=== PATIENT | female | born 2005 | race Caucasian/White ===

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

== ENCOUNTER 2024-03-08 13:05 | Emergency (ER) | payer BC, SELFPAY ==
[2024-03-08 13:25] VITALS: BP 133/81; PULSE 74; RESP 20; TEMP 36.9; O2SAT 96; BMI 35.5
--- NOTE | 2024-03-08 13:31 | ED_ITS ---
Discharge Plan Disposition Patient Disposition: Home, Self-Care Condition: Good Prescriptions Prescriptions: New azithromycin [Zithromax Z-Laron] 250 mg tablet See Rx Instructions .ROUTE .COMPLEX 5 Days Qty: 6 0RF Rx Instructions: For 250 mg dose pack: take 500 mg today (day 1), then 250 mg for 4 days (days 2-5) No Action propranolol 10 mg tablet 10 mg PO BID Qty: 60 2RF Qulipta 60 mg tablet 60 mg PO DAILY Qty: 90 3RF Referrals Follow up/Referrals: Christina Molina APRN [Primary Care Provider] - See instructions Activity Restrictions/Add. Instructions Additional Instructions/Restrictions: Monitor Temp, Over the counter Motrin or Tylenol as directed/as needed Tylenol every 4 hours and Motrin every 6 hours (as long as your family doctor has told you that you can take it) for fever or pain. and straight to ER if unable to lower temp less than 101.0 after medication given *Warm salt water gargles may help to soothe the throat *Throat Lozenges? *Warm fluids like tea with honey may help to soothe the throat? *Sleep elevated *Humidifier/Vaporizer Take medication as prescribed Your throat swab was sent for culture. Those results are typically sent to your primary care. Be sure to follow up in 2-3 days with your family doctor/[facility] care physician if no improvement so they can review those result and treat if necessary. If you don?t have a primary care doctor, I recommend you get one but in the mean time, you will have to return to a walk in clinic Follow up IMMEDIATELY for new or worsening symptoms or no Noticeable improvement over the next 48-72 hours. 911 for difficulty breathing or swallowing Clinical Impressions Clinical Impression: Pharyngitis Instructions Patient Instructions: Sore Throat, Azithromycin Print Language Print Language: Croatian Discharge ED Provider: Korina Chandra [facility] HPI General Stated complaint: sore throat Mode of Arrival: Ambulatory Source of Information: Patient Limitations: No Limitations Time Seen by Provider: 03/08/24 13:31 Description of Symptoms (Recalled from Triage Doc. by RN): PATIENT C/O SORE THROAT, FEVER, RUNNY NOSE, COUGH, CONGESTION, SNEEZING, BODY ACHES, CHILLS, AND WHEEZING X 4 DAYS HEENT Symptoms (Recalled from RN notes): Yes Resp Symptoms (Recalled from RN notes): Yes Skin Symptoms (Recalled from RN notes): No MS Symptoms (Recalled from RN notes): No Functional Status (Recalled from RN notes): WNL History of Present Illness Provider Complaint: Patient states that she hasnt felt well for about 3-5 days States that she has been having body aches, chills, sore throat, fever, chills, headache, runny nose and sneezing States that she thought she was feeling a little better but then symptoms returned and getting worse and she noticed she was having red streaks on her throat so she came in to get checked Related Data Previous Rx's ?Medication ?Instructions ?Recorded atogepant 60 mg tablet (Qulipta) 60 mg PO DAILY #90 tabs 05/21/23 propranolol 10 mg tablet 10 mg PO BID #60 tabs 09/06/23 azithromycin 250 mg tablet See Rx Instructions PO .COMPLEX 5 03/08/24 (Zithromax Z-Laron) days #6 tabs Allergies Allergy/AdvReac Type Severity Reaction Status Date / Time No Known Allergies Allergy Verified 11/14/23 14:17 Worker's Comp Is this a Worker's Comp case?: No [facility] Disclaimer: The information contained in this section may have been updated after the patient was seen, as this information can be updated by other users. Medical History Low back pain Encounter for control pills maintenance Acute effusion of both middle ears Strep pharyngitis Bradycardia Abnormality on patient-activated cardiac event recorder Chest pain Syncope URI (upper respiratory infection) UTI (urinary tract infection) Pyelonephritis Knee instability Knee pain, left URI (upper respiratory infection) Otitis media Otitis externa Pharyngitis Urinary tract infection Migraine Asthma Surgical History No history of previous surgery Family History Mother Hypertension Diabetes Social History Smoking Status: Never smoker second hand exposure: No alcohol intake: never substance use type: denies use current occupational status: student Travel in the last 8 weeks: None current occupational exposures/hazards: No Have you lived/traveled outside US in past 30 days?: No Contact w/someone who lives/traveled outside US past 30 days?: No Exposure to someone with infectious disease in past 14 days?: No Do you have a fever (greater than 100.4 F or 38 C)?: No Have you tested positive for COVID-19: No Exposed to someone with COVID-19 in past 14 days?: No Do you have a sore throat?: Yes Do you have a cough?: No Do you have any weakness?: No Do you have any diarrhea?: No Are you experiencing any unusual bleeding?: No Do you have any muscle aches/pain?: No Do you have any abdominal pain?: No Are you experiencing loss of taste or smell?: No ROS Obtained: Yes All systems reviewed & no additional complaints except as documented and Yes Systems reviewed as appropriate & no additional complaints except as documented Constitutional Constitutional: Reports system reviewed and no additional complaints, except as documented, Reports as per HPI, Reports body ache, Reports chills, Reports fatigue, Reports fever(s) and Reports headache(s) ENT Ears, Nose, Mouth, and Throat: Reports system reviewed and no additional complaints, except as documented, Reports as per HPI, Reports otalgia, Reports headache(s), Reports nasal congestion, Reports nasal discharge and Reports sore throat Cardiovascular Cardiovascular: Reports system reviewed and no additional complaints, except as documented and Reports as per HPI Respiratory Respiratory: Reports system reviewed and no additional complaints, except as documented and Reports as per HPI Neurologic Neurologic: Reports headache(s) Endocrine Endocrine: Reports fatigue Physical Exam General General appearance: alert and in no apparent distress Expanded ENT Exam Nose exam: Absent sinus tenderness Throat exam: Present tonsillar erythema; Absent tonsillomegaly or tonsillar exudate Respiratory Respiratory exam: Present normal lung sounds bilaterally; Absent respiratory distress or wheezes Cardiovascular Cardiovascular exam: Present regular rate, normal rhythm and normal heart sounds Abdominal Exam Abdominal exam: Present soft and normal bowel sounds; Absent distention or tenderness Neurological Exam Neurological exam: Present alert, oriented X3 and normal gait Medical Decision Making Medical Records Screening: Per USPSTF and CDC recommendations, given the prevalence of disease in our region, it is our hospital?s policy to screen for HIV and viral Hepatitis for all patients aged 18 and over and those with ongoing risk factors. Nino Inquiry Pt receiving controlled substance: No Nino was queried for this patient: No Vital Signs: 03/08/24 13:25 Temperature 98.5 F Temperature Source Oral Pulse Rate [Left Brachial] 74 Respiratory Rate 20 Blood Pressure [Left Arm] 133/81 Blood Pressure Mean [Left Arm] 98 Blood Pressure Source [Left Arm] Automatic Cuff Blood Pressure Position [Left Arm] Sitting 02 Sat by Pulse Oximetry 96 Oxygen Delivery Method Room Air Lab Data Lab results reviewed: Yes I reviewed the patient's lab results.
[2024-03-08 13:41] LABS: UTC Strep Screen (Rapid) Negative (Negative)
[2024-03-08 13:43] LABS: UTC Influenza A Antigen Negative (Negative); UTC Influenza B Antigen Negative (Negative)
[2024-03-08 13:52] VITALS: BP 133/81; PULSE 74; RESP 20; TEMP 36.9; O2SAT 96
[2024-03-08 14:10] LABS: Coronavirus 19, PCR Not Detected (NotDetected); Human Rhinovirus Not Detected (NotDetected); Influenza A, PCR Not Detected (NotDetected); Influenza B, PCR Not Detected (NotDetected); Respiratory Syncytial Virus Not Detected (NotDetected)
== END 2024-03-08 13:58 | disposition home or self-care (01) ==
PROVIDERS: Emergency Provider Nurse Practitioner; PCP Nurse Practitioner Family
DX: J02.9 Acute pharyngitis, unspecified (principal)
CPT/HCPCS: 87631; 87804; 87880; 99213; G0381

== ENCOUNTER 2024-03-09 11:41 | Emergency (ER) | payer BC, SELFPAY ==
--- NOTE | 2024-03-09 12:30 | XR_ITS ---
PROCEDURE INFORMATION: Exam: XR Chest Exam date and time: 03/09/2024 12:24 PM Age: 18 years old Clinical indication: Cough; Additional info: Chest congestion and SOB TECHNIQUE: Imaging protocol: Radiologic exam of the chest. Views: 2 views. COMPARISON: CT ABDOMEN PELVIS W CON 09/13/2023 6:39 PM FINDINGS: Lungs: Unremarkable. No consolidation. Pleural spaces: Unremarkable. No pleural effusion. No pneumothorax. Heart/Mediastinum: Unremarkable. No cardiomegaly. Bones/joints: Unremarkable. IMPRESSION: No acute findings.
[2024-03-09 12:40] VITALS: BP 114/78; PULSE 64; RESP 19; TEMP 37; O2SAT 98; BMI 37.2
--- NOTE | 2024-03-09 12:54 | ED_ITS ---
Discharge Plan Disposition Patient Disposition: Home, Self-Care Condition: Good Prescriptions Prescriptions: New levalbuterol tartrate [Xopenex HFA] 45 mcg/actuation HFA aerosol inhaler 1 - 2 inh inhalation Q6H PRN (Reason: shortness of breath) Qty: 15 0RF benzonatate 100 mg capsule 100 mg PO TID PRN (Reason: cough) Qty: 30 0RF methylprednisolone [Medrol (Laron)] 4 mg tablets,dose pack See Rx Instructions .Route .COMPLEX 6 Days Qty: 21 0RF Rx Instructions: taper pack; guaifenesin [Mucinex] 600 mg tablet extended release 12hr 600 mg PO BID PRN (Reason: cough) Qty: 20 0RF No Action propranolol 10 mg tablet 10 mg PO BID Qty: 60 2RF Qulipta 60 mg tablet 60 mg PO DAILY Qty: 90 3RF azithromycin [Zithromax Z-Laron] 250 mg tablet See Rx Instructions .ROUTE .COMPLEX 5 Days Qty: 6 0RF Rx Instructions: For 250 mg dose pack: take 500 mg today (day 1), then 250 mg for 4 days (days 2-5) Referrals Follow up/Referrals: Christina Molina APRN [Primary Care Provider] - See instructions Activity Restrictions/Add. Instructions Additional Instructions/Restrictions: * Continue antibiotic today. Be sure to complete entire prescription even if feeling better * Monitor temp. Tylenol every 4 hours as needed and / or ibuprofen every 6 hours as needed ( As long as your primary care physician has told you that it ok to take both. For fever/aches/pains ER if no less than 101 despite Tylenol or Motrin * Humidifier/vaporizer or hot steamy shower * Inhaler every 4-6 hours as needed like we discussed. If unsure how to use it, ask pharmacist to demonstrate how. Should help open airways and improve cough, wheezing, and shortness of breath * Mucinex during the day for your cough and cough suppressant only at night. Be sure to drink lots of water. *Tessalon Perles will not cause drowsiness but use at bedtime to help stop cough so that you may get some rest. *Start steroid today. Helps with inflammation therefore, cough and wheezing. Follow directions on the package. Reviewed side effects. Patient reports taking them before. Follow up IMMEDIATELY for new or worsening of symptoms OR no noticeable improvement over the next 48-72 hours. 911 immediately for any life threatening symptoms such as chest pain or difficulty breathing Clinical Impressions Clinical Impression: Bronchitis Instructions Patient Instructions: Sore Throat Print Language Print Language: Nepali Discharge ED Provider: Korina Chandra [facility] [place] HPI General Stated complaint: cough/congestion Mode of Arrival: Ambulatory Source of Information: Patient Limitations: No Limitations Time Seen by Provider: 03/09/24 12:54 Description of Symptoms (Recalled from Triage Doc. by RN): PATIENT C/O COUGH, CONGESTION, SORE THROAT, WHEEZING, FEVER, BODY ACHES, AND FEELING LIKE SHE CAN'T TAKE A DEEP BREATH X 5 DAYS HEENT Symptoms (Recalled from RN notes): Yes Resp Symptoms (Recalled from RN notes): Yes Skin Symptoms (Recalled from RN notes): No MS Symptoms (Recalled from RN notes): No Functional Status (Recalled from RN notes): WNL History of Present Illness Provider Complaint: Patient states that she was seen yesterday for sore throat and started her medication States that she had asthma when she was younger and she woke up this morning and felt like he wasnt able to get a deep breath and had some wheezing and cough States that she has continued on and off today with wheezing and didnt have an inhaler at home and was worried that she may have Bronchitis or Pneumonia and wanted to get checked Related Data Previous Rx's ?Medication ?Instructions ?Recorded atogepant 60 mg tablet (Qulipta) 60 mg PO DAILY #90 tabs 05/21/23 propranolol 10 mg tablet 10 mg PO BID #60 tabs 09/06/23 azithromycin 250 mg tablet See Rx Instructions PO .COMPLEX 5 03/08/24 (Zithromax Z-Laron) days #6 tabs benzonatate 100 mg capsule 100 mg PO TID PRN cough #30 caps 03/09/24 guaifenesin 600 mg tablet, 600 mg PO BID PRN cough #20 tabs 03/09/24 extended release 12 hr (Mucinex) levalbuterol tartrate 45 1 - 2 inh inhalation Q6H PRN 03/09/24 mcg/actuation aerosol inhaler shortness of breath #15 grams (Xopenex HFA) methylprednisolone 4 mg tablets in See Rx Instructions .Route 03/09/24 a dose pack (Medrol (Laron)) .COMPLEX 6 days #21 tabs Allergies Allergy/AdvReac Type Severity Reaction Status Date / Time No Known Allergies Allergy Verified 11/14/23 14:17 Worker's Comp Is this a Worker's Comp case?: No [facility] Disclaimer: The information contained in this section may have been updated after the patient was seen, as this information can be updated by other users. Medical History Low back pain Encounter for control pills maintenance Acute effusion of both middle ears Strep pharyngitis Bradycardia Abnormality on patient-activated cardiac event recorder Chest pain Syncope URI (upper respiratory infection) UTI (urinary tract infection) Pyelonephritis Knee instability Knee pain, left URI (upper respiratory infection) Otitis media Otitis externa Pharyngitis Urinary tract infection Migraine Asthma Surgical History No history of previous surgery Family History Mother Hypertension Diabetes Social History Smoking Status: Never smoker second hand exposure: No alcohol intake: never substance use type: denies use current occupational status: student Travel in the last 8 weeks: None current occupational exposures/hazards: No Have you lived/traveled outside US in past 30 days?: No Contact w/someone who lives/traveled outside US past 30 days?: No Exposure to someone with infectious disease in past 14 days?: No Do you have a fever (greater than 100.4 F or 38 C)?: No Have you tested positive for COVID-19: No Exposed to someone with COVID-19 in past 14 days?: No Do you have a sore throat?: No Do you have a cough?: Yes Do you have any weakness?: No Do you have any diarrhea?: No Are you experiencing any unusual bleeding?: No Do you have any muscle aches/pain?: No Do you have any abdominal pain?: No Are you experiencing loss of taste or smell?: No ROS Obtained: Yes All systems reviewed & no additional complaints except as documented and Yes Systems reviewed as appropriate & no additional complaints except as documented Constitutional Constitutional: Reports system reviewed and no additional complaints, except as documented and Reports as per HPI ENT Ears, Nose, Mouth, and Throat: Reports system reviewed and no additional complaints, except as documented, Reports as per HPI, Reports nasal congestion, Reports nasal discharge and Reports sore throat Cardiovascular Cardiovascular: Reports system reviewed and no additional complaints, except as documented and Reports as per HPI Respiratory Respiratory: Reports system reviewed and no additional complaints, except as documented, Reports as per HPI, Reports shortness of breath (this morning), Reports chest congestion, Reports cough and Reports wheezing Allergic/Immunologic Allergic/Immunologic: Reports wheezing Physical Exam General General appearance: alert and in no apparent distress Expanded ENT Exam Nose exam: Present sinus tenderness Throat exam: Present tonsillar erythema; Absent tonsillar exudate Respiratory Respiratory exam: Present normal lung sounds bilaterally; Absent respiratory distress or wheezes Cardiovascular Cardiovascular exam: Present regular rate, normal rhythm and normal heart sounds Neurological Exam Neurological exam: Present alert, oriented X3 and normal gait Medical Decision Making Medical Records Screening: Per USPSTF and CDC recommendations, given the prevalence of disease in our region, it is our hospital?s policy to screen for HIV and viral Hepatitis for all patients aged 18 and over and those with ongoing risk factors. Nino Inquiry Pt receiving controlled substance: No Nino was queried for this patient: No Vital Signs: 03/09/24 12:40 Temperature 98.6 F Temperature Source Oral Pulse Rate [Brachial] 64 Respiratory Rate 19 Blood Pressure [Left Arm] 114/78 Blood Pressure Mean [Left Arm] 90 Blood Pressure Source [Left Arm] Automatic Cuff Blood Pressure Position [Left Arm] Sitting 02 Sat by Pulse Oximetry 98 Oxygen Delivery Method Room Air Orders (Tests/Meds): ORDERS Category Date Time Status CXR 2 view (NOT portable) [XR chest 2V] Stat Exams 03/09/24 12:30 Taken Radiology Data #1: Image(s): Chest Image Reviewed: Yes I have reviewed radiologist's interpretation FINDINGS: Lungs: Unremarkable. No consolidation. Pleural spaces: Unremarkable. No pleural effusion. No pneumothorax. Heart/Mediastinum: Unremarkable. No cardiomegaly. Bones/joints: Unremarkable. IMPRESSION: No acute findings. Medical Decision Narrative: Patient states that she has taken steriods in the recent past without complications or reactions Medications discussed with pharmacy due to patient hx and pharmacy recommended xopenex inhaler
[2024-03-09 13:32] VITALS: BP 114/78; PULSE 64; RESP 19; TEMP 37; O2SAT 98
== END 2024-03-09 13:34 | disposition home or self-care (01) ==
PROVIDERS: Emergency Provider Nurse Practitioner; PCP Nurse Practitioner Family
DX: J20.9 Acute bronchitis, unspecified (principal)
CPT/HCPCS: 71046; 99213; G0381